=== PATIENT | female | born 1990 | race Caucasian/White ===

== ENCOUNTER 2023-07-19 16:59 | Outpatient (CLI) | payer OTHER, SELFPAY ==
[2023-07-19 17:33] LABS: Basophils Absolute Auto 0.01 K/uL (0.00-0.30); Basophils Percent Auto 0.1 % (0.0-3.0); Hematocrit 36.2 % (33.0-51.0); Hemoglobin* 11.3 gm/dL (12.0-16.0); Immature Granulocytes Abs Auto 0.01 K/uL (0.00-0.30); Immature Granulocytes Pct Auto 0.1 %; Lymphocytes Absolute Auto 2.74 K/uL (0.90-2.90); Lymphocytes Percent Auto 27.1 % (20-44); Mean Corpuscular HGB Conc 31 gm/dL (32-36); Mean Corpuscular Hemoglobin 23 pg (26-34); Mean Corpuscular Volume 74 fL (80-100); Monocytes Percent Auto 4.5 % (0.0-11.0); Neutrophils Percent Auto 66.2 % (42.0-72.0); Platelet Count* 374 K/uL (140-440); RDW Coefficient of Variation % 15.7 % (11.5-15.5); Red Blood Count 4.89 m/uL (4.00-5.20); White Blood Count* 10.12 K/uL (4.50-11.00)
[2023-07-19 17:34] LABS: Albumin* 4.3 g/dL (3.3-5.0); Slide Review Reflex No
[2023-07-19 17:35] LABS: Chloride* 103 mmol/L (96-114); Potassium* 3.8 mmol/L (3.6-5.1); Sodium* 138 mmol/L (135-149)
[2023-07-19 17:37] LABS: Anion Gap 9 mEq/L (7-15); Aspartate Amino Transferase* 18 U/L (12-35); Bilirubin Total* 0.3 mg/dL (0.1-1.5); Carbon Dioxide* 26 mmol/L (20-32); Creatinine* 0.7 mg/dL (0.5-1.5); Estimated Glomerular Filt Rate 117 ml/min
[2023-07-19 17:38] LABS: Alanine Aminotransferase* 18 U/L (4-35); Alkaline Phosphatase* 80 U/L (40-150); Blood Urea Nitrogen* 13 mg/dL (5-24); Calcium* 9.6 mg/dL (8.4-10.6); Glucose* 203 mg/dL (60-115)
[2023-07-22 03:20] LABS: Lamotrigine 14.7 ug/mL (3.0-15.0)
== END 2023-07-19 17:00 | disposition home or self-care (01) ==
PROVIDERS: PCP Family Medicine
DX: Z79.899 Other long term (current) drug therapy (principal)
CPT/HCPCS: 36415; 80053; 80175; 85025